=== PATIENT | female | born 1990 | race African-American/Black ===

== ENCOUNTER 2018-01-14 11:35 | Emergency (ER) | payer OTHER ==
[~2018-01-14] VITALS: Ht 170.2 cm; Wt 71.0 kg
[2018-01-14 12:11] VITALS: BP 111/72
[2018-01-14] MEDS ORDERED: FLUORESCEIN SODIUM 1MG/STRIP OP ONE ×2 (12:15→13:45)
[2018-01-14] MEDS ORDERED: TETRACAINE 0.5% OPHTH DROPS 4ML OP ONE ×2 (12:15→13:45)
[2018-01-14] MEDS ORDERED: TETANUS, DIPHTHERIA, PERTUSSIS VAC/PF 0.5ML (>7YR OLD) IM ONE (12:15)
[2018-01-14] MEDS ORDERED: BALANCED SALT IRRIG SOLN 15ML IO ONE (13:45)
== END 2018-01-14 14:32 | disposition home or self-care (01) ==
LOC: ER 11:35
DX: S05.01XA Injury of conjunctiva and corneal abrasion without foreign body, right eye, initial encounter (principal); X58.XXXA Exposure to other specified factors, initial encounter; Y93.89 Activity, other specified; Y92.89 Other specified places as the place of occurrence of the external cause; F17.210 Nicotine dependence, cigarettes, uncomplicated; Z71.6 Tobacco abuse counseling; Z23 Encounter for immunization
CPT/HCPCS: 90471; 90715; 99284; 99406; J7040